=== PATIENT | female | born 1970 | race Caucasian/White ===

== ENCOUNTER 2023-12-15 13:12 | Emergency (ER) | payer MEDICAID ==
[~2023-12-15] VITALS: Ht 165.1 cm; Wt 64.0 kg
[2023-12-15 13:21] VITALS: BP 182/96; PULSE 71; RESP 16; TEMP 97.8; O2SAT 98
[2023-12-15 13:51] LABS: CLARITY URINE CLOUDY (CLEAR); COLOR URINE YELLOW (YELLOW); GLUCOSE URINE NEGATIVE (NEGATIVE); KETONES URINE NEGATIVE (NEGATIVE); LEUKOCYTE ESTERASE URINE 3+ (NEGATIVE); NITRITE URINE NEGATIVE (NEGATIVE); OCCULT BLOOD URINE NEGATIVE (NEGATIVE); PROTEIN URINE NEGATIVE (NEGATIVE); SPECIFIC GRAVITY URINE 1.014 (1.005-1.030); UROBILINOGEN URINE 0.2 E.U./dL (0.2-1.0)
[2023-12-15 14:11] LABS: SQUAMOUS EPITHELIAL CELL URINE 3+ /lpf (RARE/1+)
[2023-12-15 14:12] LABS: BACTERIA URINE 1+
[2023-12-15 14:13] LABS: WBC URINE 0-2 /hpf (0-2)
[2023-12-15 14:16] LABS: RBC URINE NONE SEEN /hpf (0-2); YEAST URINE 1+
[2023-12-15 14:29] LABS: BASOPHILS % 0.6 % (0.0-2.0); EOSINOPHILS % 3.3 % (0.0-5.0); HEMOGLOBIN. 14.1 g/dL (12.0-16.0); LYMPHOCYTES % 28.2 % (20.0-50.0); MEAN CORPUSCULAR HEMOGLOBIN 30.9 pg (28.0-32.0); MEAN CORPUSCULAR HGB CONC 33.6 g/dL (31.0-37.0); MEAN CORPUSCULAR VOLUME 92.1 fL (81.0-99.0); MEAN PLATELET VOLUME 7.4 fl (7.4-10.4); MONOCYTES % 7.1 % (2.0-8.0); NEUTROPHILS % 60.8 % (40.0-76.0); PLATELET 354 x1000/uL (130-400); RED BLOOD CELL COUNT 4.56 mill/uL (4.2-5.4); RED CELL DISTRIBUTION WIDTH 12.8 % (11.6-14.6); WHITE BLOOD COUNT 7.4 x1000/uL (4.5-11.0)
[2023-12-15 14:46] LABS: ALANINE AMINOTRANSFERASE 23 IU/L (10-49); ALBUMIN 4.8 g/dL (3.2-4.8); ASPARTATE AMINOTRANSFERASE 28 IU/L (<34); BILIRUBIN TOTAL 0.5 mg/dL (0.1-1.0); CALCIUM 9.2 mg/dL (8.7-10.4); CARBON DIOXIDE 29 mEq/L (21-32); CHLORIDE 104 mEq/L (98-107); CREATININE 0.8 mg/dL (0.6-1.0); GLUCOSE 93 mg/dL (70-105); POTASSIUM 4.4 mEq/L (3.5-5.1); SODIUM 138 mEq/L (136-145); UREA NITROGEN BLOOD 14 mg/dL (9-23)
== END 2023-12-15 16:47 | disposition left against medical advice (07) ==
LOC: ER 13:12
DX: R05.9 Cough, unspecified (principal); I49.9 Cardiac arrhythmia, unspecified; Z53.21 Procedure and treatment not carried out due to patient leaving prior to being seen by health care provider
CPT/HCPCS: 36415; 80053; 81003; 81025; 85025; 93005; 99281